=== PATIENT | female | born 1940 ===

== ENCOUNTER 2019-10-21 05:15 | Day surgery (SDC) | payer OTHER ==
[~2019-10-21 05:15] MED LIST: AMBIEN10 MG PO; CANDESARTAN CILE8 MG PO; NEURONTIN300 MG PO; PROTONIX20 MG PO; SYNTHROID88 MCG PO; ULTRACET PO; ZIAC 2.5-6.251 EACH PO
== END 2019-10-21 18:00 | disposition home or self-care (01) ==
LOC: CIR.AMB 05:15
DX: M75.122 Complete rotator cuff tear or rupture of left shoulder, not specified as traumatic (principal); M75.42 Impingement syndrome of left shoulder; M25.312 Other instability, left shoulder; M75.22 Bicipital tendinitis, left shoulder; M24.012 Loose body in left shoulder
CPT/HCPCS: 23470; 29823; 29826; 29827; C1776